=== PATIENT | female | born 1990 | race Caucasian/White ===

== ENCOUNTER 2017-07-08 10:35 | Emergency (ER) | payer BC, OTHER ==
--- NOTE | 2017-07-08 11:20 | ER Document Report ---
ED Medical Screen (RME) - General Chief Complaint: Asthma Exacerbation Stated Complaint: DIFFICULTY BREATHING Time Seen by Provider: 07/08/17 11:06 Notes: This 27-year-old female patient comes emergency room complaining of asthma exacerbation. She is . She did start Singulair this morning. She states albuterol does not really seem to help. She complains of trouble with deep breathing. She is quite anxious and unable to keep her legs still. She is complaining of tingling to her fingers. She does seem to be hyperventilating. An ABG will be done to sort out if this is all anxiety hyperventilation or some other pathology. I have greeted and performed a rapid initial assessment of this patient. A comprehensive ED assessment and evaluation of the patient, analysis of test results and completion of the medical decision making process will be conducted by additional ED providers. TRAVEL OUTSIDE OF THE [place] IN LAST 30 DAYS: No - Related Data Allergies/Adverse Reactions: No Known Allergies Allergy (Verified 02/16/16 19:06) Past Medical History - Social History Chew tobacco use (# tins/day): No Frequency of alcohol use: None Drug Abuse: None Renal/ Medical History: Denies: Hx Peritoneal Dialysis - Immunizations Hx Diphtheria, Pertussis, Tetanus Vaccination: Yes Physical Exam - Vital signs Vitals: Temp Pulse Resp BP Pulse Ox 97.6 F 91 20 132/68 H 100 07/08/17 10:40 07/08/17 10:40 07/08/17 10:40 07/08/17 10:40 07/08/17 10:40 Course - Vital Signs Vital signs: Temp Pulse Resp BP Pulse Ox 97.6 F 91 20 132/68 H 100 07/08/17 10:40 07/08/17 10:40 07/08/17 10:40 07/08/17 10:40 07/08/17 10:40 Doctor's Discharge - Discharge Referrals: KAREN DUMONT MD [Primary Care Provider] - Follow up as needed
[2017-07-08 11:59] LABS: ARTERIAL BLOOD BASE EXCESS -1.9 mmol/L; ARTERIAL BLOOD FIO2 21%; ARTERIAL BLOOD H2CO3 0.49 mmol/L (1.05-1.35); ARTERIAL BLOOD HCO3 16.2 mmol/L (20-26); ARTERIAL BLOOD PO2 118.5 mmHg (80-100); ARTERIAL BLOOD TOTAL CO2 16.7 mmol/L (21-25)
[2017-07-08 12:01] LABS: ARTERIAL BLOOD PCO2 16.2 mmHg (35-45); ARTERIAL BLOOD PH 7.62 (7.35-7.45)
[2017-07-08 13:23] LABS: ABSOLUTE LYMPHOCYTES (AUTO) 1.5 10^3/uL (0.5-4.7); ABSOLUTE MONOCYTES (AUTO) 0.6 10^3/uL (0.1-1.4); ABSOLUTE NEUT (AUTO) 8.4 10^3/uL (1.7-8.2); BASOPHILS % (AUTO) 0.3 % (0-2); EOSINOPHILS % (AUTO) 0.4 % (0-6); HEMATOCRIT 41.5 % (36.0-47.0); HEMOGLOBIN 14.5 g/dL (12.0-15.5); LYMPHOCYTES % (AUTO) 14.1 % (13-45); MEAN CORPUSCULAR HEMOGLOBIN 32.6 pg (27.0-33.4); MEAN CORPUSCULAR HGB CONC 35.1 g/dL (32.0-36.0); MEAN CORPUSCULAR VOLUME 93 fl (80-97); MONOCYTES % (AUTO) 5.9 % (3-13); PLATELET COUNT 290 10^3/uL (150-450); RED BLOOD COUNT 4.46 10^6/uL (3.72-5.28); RED CELL DISTRIBUTION WIDTH 13.2 % (11.5-14.0); SEGMENTED NEUTROPHILS % (AUTO) 79.3 % (42-78); TOTAL CELLS COUNTED % (AUTO) 100 %; WHITE BLOOD COUNT 10.5 10^3/uL (4.0-10.5)
[2017-07-08 13:42] LABS: APPEARANCE,URINE CLEAR; BILIRUBIN,URINE NEGATIVE (NEGATIVE); COLOR,URINE STRAW; GLUCOSE, URINE NEGATIVE (NEGATIVE); KETONES,URINE NEGATIVE (NEGATIVE); LEUKOCYTE ESTERASE,URINE NEGATIVE (NEGATIVE); NITRITE,URINE NEGATIVE (NEGATIVE); PROTEIN,URINE NEGATIVE (NEGATIVE); URINE SPECIFIC GRAVITY 1.003; UROBILINOGEN,URINE NEGATIVE mg/dL (<2.0)
[2017-07-08 13:46] LABS: ALANINE AMINOTRANSFERASE 22 U/L (9-52); ALBUMIN 4.2 g/dL (3.5-5.0); ALKALINE PHOSPHATASE 37 U/L (38-126); ANION GAP 11 (5-19); ASPARTATE AMINO TRANSFERASE 21 U/L (14-36); BILIRUBIN,DIRECT 0.4 mg/dL (0.0-0.4); BILIRUBIN,TOTAL 0.7 mg/dL (0.2-1.3); BLOOD UREA NITROGEN 11 mg/dL (7-20); CALCIUM 9.5 mg/dL (8.4-10.2); CARBON DIOXIDE 21 mmol/L (22-30); CHLORIDE 107 mmol/L (98-107); GLUCOSE 81 mg/dL (75-110); POTASSIUM 3.9 mmol/L (3.6-5.0); SODIUM 139.1 mmol/L (137-145); TOTAL PROTEIN 6.8 g/dL (6.3-8.2)
--- NOTE | 2017-07-08 15:10 | ER Document Report ---
ED General - General Chief Complaint: Asthma Exacerbation Stated Complaint: DIFFICULTY BREATHING Time Seen by Provider: 07/08/17 11:06 Mode of Arrival: Ambulatory Information source: Patient Notes: 27 yr old female presents with complaints of anxiety panic attack and hyperventilating. pt notes she is under alot of stress, has signicfcant family hx of anxiety. pt was seen by her obgyn, they believes she had asthma started on spiriva, but that she has not had any wheezing. pt denies any calf pain, dvt or pe risk factors. TRAVEL OUTSIDE OF THE [place] IN LAST 30 DAYS: No - HPI Onset: Just prior to arrival Onset/Duration: Sudden Quality of pain: No pain Severity: Mild Pain Level: Denies Associated symptoms: Nausea, Shortness of breath Exacerbated by: Other - stress Relieved by: Denies Similar symptoms previously: Yes Recently seen / treated by doctor: Yes - Related Data Allergies/Adverse Reactions: No Known Allergies Allergy (Verified 02/16/16 19:06) Past Medical History - Social History Smoking Status: Never Smoker Cigarette use (# per day): No Chew tobacco use (# tins/day): No Smoking Education Provided: No Frequency of alcohol use: None Drug Abuse: None Family History: Reviewed & Not Pertinent Patient has suicidal ideation: No Patient has homicidal ideation: No Renal/ Medical History: Denies: Hx Peritoneal Dialysis - Immunizations Hx Diphtheria, Pertussis, Tetanus Vaccination: Yes Review of Systems - Review of Systems Notes: REVIEW OF SYSTEMS: CONSTITUTIONAL : Denies fever, chills, or sweats. Denies recent illness. EENT: Denies eye, ear, throat, or mouth pain or symptoms. Denies nasal or sinus congestion or discharge. Denies throat, tongue, or mouth swelling or difficulty swallowing. CARDIOVASCULAR: Denies chest pain. Denies palpitations or racing or irregular heart beat. Denies ankle edema. RESPIRATORY: admits to sob GASTROINTESTINAL: admits to nausea GENITOURINARY: Denies difficulty urinating, painful urination, burning, frequency, blood in urine, or discharge. FEMALE GENITOURINARY: Denies vaginal bleeding, heavy or abnormal periods, irregular periods. Denies vaginal discharge or odor. MUSCULOSKELETAL: Denies back or neck pain or stiffness. Denies joint pain or swelling. SKIN: Denies rash, lesions or sores. HEMATOLOGIC : Denies easy bruising or bleeding. LYMPHATIC: Denies swollen, enlarged glands. NEUROLOGICAL: Denies confusion or altered mental status. Denies passing out or loss of consciousness. Denies dizziness or lightheadedness. Denies headache. Denies weakness or paralysis or loss of use of either side. Denies problems with gait or speech. Denies sensory loss, numbness, or tingling. Denies seizures. PSYCHIATRIC: Denies anxiety or stress. Denies depression, suicidal ideation, or homicidal ideation. ALL OTHER SYSTEMS REVIEWED AND NEGATIVE. PHYSICAL EXAMINATION: GENERAL: Well-appearing, well-nourished and in no acute distress. HEAD: Atraumatic, normocephalic. EYES: Pupils equal round and reactive to light, extraocular movements intact, conjunctiva are normal. ENT: Nares patent, oropharynx clear without exudates. Moist mucous membranes. NECK: Normal range of motion, supple without lymphadenopathy LUNGS: Breath sounds clear to auscultation bilaterally and equal. No wheezes rales or rhonchi. pt hyperventilating HEART: Regular rate and rhythm without murmurs ABDOMEN: Soft, gravid female Female : deferred Musculoskeletal: Normal range of motion, no pitting or edema. No cyanosis. NEUROLOGICAL: Cranial nerves grossly intact. Normal speech, normal gait. Normal sensory, motor exams PSYCH: Normal mood, normal affect. SKIN: Warm, Dry, normal turgor, no rashes or lesions noted. Dictation was performed using [employer] voice recognition software Physical Exam - Vital signs Vitals: Temp Pulse Resp BP Pulse Ox 97.6 F 91 20 132/68 H 100 07/08/17 10:40 07/08/17 10:40 07/08/17 10:40 07/08/17 10:40 07/08/17 10:40 Course - Re-evaluation Re-evalutation: Patient has obvious anxiety stress is hyperventilating significantly, her pH is noted to be 7.68 which would be consistent with hyperventilation, after talking to the patient commonly her hyperventilation stopped she is not tachycardic she is not hypoxic she is satting well I will watch her in the emergency department for a few hours to make sure that there is no abnormal vitals that she looks well 07/08/17 15:44 Mental health due ot does not wish to start any meds, Dr Diaz consulted requests Zoloft 50mg daily patient otherwise is well-appearing will be discharged home with extremely close follow-up 07/08/17 15:46 After performing a Medical Screening Examination, I estimate there is LOW risk for RUPTURED ESOPHAGUS, PNEUMOTHORAX, PULMONARY EMBOLISM, ACUTE CORONARY SYNDROME, OR THORACIC AORTIC DISSECTION, thus I consider the discharge disposition reasonable. I have reevaluated this patient multiple times and no significant life threatening changes are noted. The patient and I have discussed the diagnosis and risks, and we agree with discharging home with close follow-up. We also discussed returning to the Emergency Department immediately if new or worsening symptoms occur. We have discussed the symptoms which are most concerning (e.g., bloody sputum, worsening pain or shortness of breath) that necessitate immediate return. - Vital Signs Vital signs: Temp Pulse Resp BP Pulse Ox 98.7 F 89 18 129/88 H 99 07/08/17 15:32 07/08/17 15:32 07/08/17 15:32 07/08/17 15:32 07/08/17 15:32 - Laboratory Result Diagrams: 07/08/17 13:05 07/08/17 13:05 Laboratory results interpreted by me: 07/08/17 07/08/17 07/08/17 11:40 13:05 13:05 Seg Neutrophils % 79.3 H Absolute Neutrophils 8.4 H Carbonic Acid 0.49 L ABG pH 7.62 H* ABG pCO2 16.2 L* ABG pO2 118.5 H ABG HCO3 16.2 L ABG Total CO2 16.7 L ABG O2 Saturation 99.0 H Carbon Dioxide 21 L Creatinine 0.51 L Alkaline Phosphatase 37 L Discharge - Discharge Clinical Impression: Anxiety, Hyperventilating, Respiratory alkalosis Condition: Stable Disposition: HOME, SELF-CARE Instructions: Anxiety ([facility]) Referrals: KAREN DUMONT MD [Primary Care Provider] - Follow up tomorrow
[2017-07-08] MEDS ORDERED: METOCLOPRAMIDE HCL 10 MG TABLET PO ONE (15:15)
[2017-07-08 15:33] VITALS: BP 129/88
== END 2017-07-08 15:31 | disposition home or self-care (01) ==
LOC: ER 10:35
DX: O99.340 Other mental disorders complicating pregnancy, unspecified trimester (principal); F41.9 Anxiety disorder, unspecified; O99.519 Diseases of the respiratory system complicating pregnancy, unspecified trimester; R06.4 Hyperventilation; O26.899 Other specified pregnancy related conditions, unspecified trimester; E87.3 Alkalosis; R11.0 Nausea; Z81.8 Family history of other mental and behavioral disorders; Z73.3 Stress, not elsewhere classified
CPT/HCPCS: 36415; 80053; 81001; 82803; 85025; 99285

== ENCOUNTER 2017-12-21 11:30 | Emergency (ER) | payer BC ==
[2017-12-21] MEDS ORDERED: ONDANSETRON HCL INJ/PF 4 MG/2 ML SDV IV ONE (12:11)
[2017-12-21] MEDS ORDERED: NORMAL SALINE 1000 ML 1,000 ML IV ONE (12:12)
--- NOTE | 2017-12-21 12:14 | ER Document Report ---
ED Medical Screen (RME) - General Chief Complaint: Dizziness Stated Complaint: DIZZY, FATIGUE, SHORTNESS OF BREATH Time Seen by Provider: 12/21/17 12:01 Mode of Arrival: Ambulatory Information source: Patient Notes: 27-year-old female at 34 weeks and 6 days presents from her [facility]ODITY [facility]YER's office with complaint of nausea, dizziness and blurred vision. Patient reports dizziness, fatigue for 1 week. She has been evaluated by her COMMODITY BU[employer]ER today and was sent here. I have greeted and performed a rapid initial assessment of this patient. A comprehensive ED assessment and evaluation of the patient, analysis of test results and completion of medical decision making process we will be contacted by additional ED providers. PHYSICAL EXAMINATION: GENERAL: no acute distress. HEAD: Atraumatic, normocephalic. EYES: Pupils equal round extraocular movements intact, conjunctiva are normal. ENT: Nares patent NECK: Normal range of motion LUNGS: No respiratory distress Musculoskeletal: Normal range of motion NEUROLOGICAL: Normal speech, normal gait. PSYCH: Normal mood, normal affect. SKIN: Warm, Dry, normal turgor, no rashes or lesions noted. TRAVEL OUTSIDE OF THE [place] IN LAST 30 DAYS: No - HPI Onset: Last week Onset/Duration: Gradual, Persistent Quality of pain: No pain Associated Symptoms: Dizzy/lightheaded, Weakness Exacerbated by: Standing, Movement, Walking Relieved by: Remaining still Similar symptoms previously: No Recently seen / treated by doctor: Yes - Today by COMMODITY [employer]ER - Related Data Smoking: Non-smoker Frequency of alcohol use: None Drug Abuse: None Allergies/Adverse Reactions: No Known Allergies Allergy (Verified 12/21/17 11:31) Past Medical History Pulmonary Medical History: Reports: Hx Asthma Renal/ Medical History: Denies: Hx Peritoneal Dialysis - Immunizations Hx Diphtheria, Pertussis, Tetanus Vaccination: Yes Physical Exam - Vital signs Vitals: Temp Pulse Resp BP Pulse Ox 97.5 F 87 16 129/75 H 98 12/21/17 11:42 12/21/17 11:42 12/21/17 11:42 12/21/17 11:42 12/21/17 11:42 Course - Vital Signs Vital signs: Temp Pulse Resp BP Pulse Ox 97.5 F 87 16 129/75 H 98 12/21/17 11:42 12/21/17 11:42 12/21/17 11:42 12/21/17 11:42 12/21/17 11:42 Doctor's Discharge - Discharge Referrals: KAREN DUMONT MD [Primary Care Provider] - Follow up as needed
[2017-12-21 13:22] LABS: ABSOLUTE EOSINOPHILS # (AUTO) 0.1 10^3/uL (0.0-0.6); ABSOLUTE LYMPHOCYTES (AUTO) 1.8 10^3/uL (0.5-4.7); ABSOLUTE MONOCYTES (AUTO) 0.6 10^3/uL (0.1-1.4); ABSOLUTE NEUT (AUTO) 7.1 10^3/uL (1.7-8.2); BASOPHILS % (AUTO) 0.2 % (0-2); EOSINOPHILS % (AUTO) 0.6 % (0-6); HEMATOCRIT 36.6 % (36.0-47.0); HEMOGLOBIN 12.8 g/dL (12.0-15.5); LYMPHOCYTES % (AUTO) 18.5 % (13-45); MEAN CORPUSCULAR HEMOGLOBIN 31.8 pg (27.0-33.4); MEAN CORPUSCULAR HGB CONC 34.9 g/dL (32.0-36.0); MEAN CORPUSCULAR VOLUME 91 fl (80-97); PLATELET COUNT 310 10^3/uL (150-450); RED BLOOD COUNT 4.02 10^6/uL (3.72-5.28); RED CELL DISTRIBUTION WIDTH 13.2 % (11.5-14.0); SEGMENTED NEUTROPHILS % (AUTO) 74.7 % (42-78); TOTAL CELLS COUNTED % (AUTO) 100 %; WHITE BLOOD COUNT 9.6 10^3/uL (4.0-10.5)
[2017-12-21 13:33] LABS: APPEARANCE,URINE SLIGHTLY-CLOUDY; BILIRUBIN,URINE NEGATIVE (NEGATIVE); COLOR,URINE STRAW; GLUCOSE, URINE NEGATIVE (NEGATIVE); KETONES,URINE NEGATIVE (NEGATIVE); LEUKOCYTE ESTERASE,URINE NEGATIVE (NEGATIVE); NITRITE,URINE NEGATIVE (NEGATIVE); PROTEIN,URINE NEGATIVE (NEGATIVE); URINE SPECIFIC GRAVITY 1.003; UROBILINOGEN,URINE NEGATIVE mg/dL (<2.0)
[2017-12-21 13:44] LABS: ALANINE AMINOTRANSFERASE 17 U/L (9-52); ALBUMIN 3.8 g/dL (3.5-5.0); ALKALINE PHOSPHATASE 97 U/L (38-126); ANION GAP 6 (5-19); ASPARTATE AMINO TRANSFERASE 20 U/L (14-36); BILIRUBIN,DIRECT 0.4 mg/dL (0.0-0.4); BILIRUBIN,TOTAL 0.5 mg/dL (0.2-1.3); BLOOD UREA NITROGEN 5 mg/dL (7-20); CALCIUM 8.9 mg/dL (8.4-10.2); CARBON DIOXIDE 24 mmol/L (22-30); CHLORIDE 106 mmol/L (98-107); GLUCOSE 81 mg/dL (75-110); SODIUM 136.2 mmol/L (137-145); TOTAL PROTEIN 7.2 g/dL (6.3-8.2)
--- NOTE | 2017-12-21 13:58 | ER Document Report ---
ED General - General Chief Complaint: Dizziness Stated Complaint: DIZZY, FATIGUE, SHORTNESS OF BREATH Time Seen by Provider: 12/21/17 12:01 Mode of Arrival: Ambulatory Notes: Patient is a 27-year-old female , that is 35 weeks gravid that presents to the emergency department for chief complaint of fatigue. Patient states that over the last week she has been feeling lightheaded, and having nausea without vomiting and fatigue. She also noticed that she was having more contractions, but not less than 5 minutes in between. She did have 3 an hour earlier today. This is her second , that has gone without complication, she has been doing well, she did have an ultrasound yesterday, that was normal. She denies having any headaches, chest pain, shortness of breath, difficulty breathing, abdominal pain, dysuria or hematuria. Past Medical History: Denies chronic medical conditions Past Surgical History: Denies surgical history Social History: Denies tobacco, alcohol or drug use Family History: Reviewed and noncontributory for presenting illness Allergies: Reviewed, see documented allergy list. REVIEW OF SYSTEMS: Unless otherwise stated in this report the patient's positive and negative responses for review of systems for constitutional, eyes, ENT, cardiovascular, respiratory, gastrointestinal, neurological, genitourinary, musculoskeletal, and integumentary systems and related systems to the presenting problem are either as stated in the HPI or were not pertinent or were negative for the symptoms and/or complaints related to the presenting medical problem. PHYSICAL EXAMINATION: Vital signs reviewed, nursing noted reviewed. GENERAL: Well-appearing, well-nourished and in no acute distress. HEAD: Atraumatic, normocephalic. EYES: Eyes appear normal, extraocular movements intact, sclera anicteric, conjunctiva are normal. ENT: nares patent, oropharynx clear without exudates. Moist mucous membranes. NECK: Normal range of motion, supple without lymphadenopathy LUNGS: Breath sounds clear to auscultation bilaterally and equal. No wheezes rales or rhonchi. HEART: Regular rate and rhythm without murmurs ABDOMEN: Soft, gravid, nontender, normoactive bowel sounds. No rebound, guarding, or rigidity. No masses appreciated. EXTREMITIES: Nontender, good range of motion, no pitting or edema. NEUROLOGICAL: No focal neurological deficits. Moves all extremities spontaneously Motor and sensory grossly intact on exam. PSYCH: Normal mood, normal affect. SKIN: Warm, Dry, normal turgor, no rashes or lesions noted on exposed skin TRAVEL OUTSIDE OF THE [place] IN LAST 30 DAYS: No - Related Data Allergies/Adverse Reactions: No Known Allergies Allergy (Verified 12/21/17 11:31) Past Medical History - General Information source: Patient - Social History Smoking Status: Never Smoker Frequency of alcohol use: None Drug Abuse: None Family History: Reviewed & Not Pertinent Patient has suicidal ideation: No Patient has homicidal ideation: No Pulmonary Medical History: Reports: Hx Asthma Renal/ Medical History: Denies: Hx Peritoneal Dialysis - Immunizations Hx Diphtheria, Pertussis, Tetanus Vaccination: Yes Physical Exam - Vital signs Vitals: Temp Pulse Resp BP Pulse Ox 97.5 F 87 16 129/75 H 98 12/21/17 11:42 12/21/17 11:42 12/21/17 11:42 12/21/17 11:42 12/21/17 11:42 Course - Re-evaluation Re-evalutation: Patient seen and examined vital signs reviewed. Laboratory data and imaging were ordered as appropriate for the patient's presenting symptoms and complaint, with consideration of any critical or life threatening conditions that may be associated with their obtained history and exam as noted above. Patient was treated with Zofran and IV fluids ordered by triage provider heart tones 144 Results were reviewed when available and demonstrated trace bacteria in the urine, will treat as the patient is , with Keflex for 5 days, while the patient follow-up with CR[employer]FERENCE [employer]ERK, blood work was unremarkable except for very mild hyponatremia, patient was given IV fluids and was feeling better The patient was re-evaluated and was improved Evaluation was most consistent with possible mild dehydration possible UTI and , will treat with Keflex for 5 days. Results were discussed with the patient at this point, after careful consideration I feel that that patient can be discharged from the emergency department, the patient was educated treatments and reasons to return to the emergency department based on their presumed diagnosis as noted above, they were advised to followup with a primary care physician in 2-3 days. Patient was agreeable to plan of care. *Note is created using voice recognition software and may contain spelling, syntax or grammatical errors. Laboratory 12/21/17 12/21/17 12/21/17 12:45 12:45 12:45 WBC 9.6 RBC 4.02 Hgb 12.8 Hct 36.6 MCV 91 MCH 31.8 MCHC 34.9 RDW 13.2 Plt Count 310 Seg Neutrophils % 74.7 Lymphocytes % 18.5 Monocytes % 6.0 Eosinophils % 0.6 Basophils % 0.2 Absolute Neutrophils 7.1 Absolute Lymphocytes 1.8 Absolute Monocytes 0.6 Absolute Eosinophils 0.1 Absolute Basophils 0.0 Sodium 136.2 L Potassium 4.0 Chloride 106 Carbon Dioxide 24 Anion Gap 6 BUN 5 L Creatinine 0.50 L Est GFR ( Amer) > 60 Est GFR (Non-Af Amer) > 60 Glucose 81 Calcium 8.9 Total Bilirubin 0.5 Direct Bilirubin 0.4 Neonat Total Bilirubin Not Reportable Neonat Direct Bilirubin Not Reportable Neonat Indirect Bili Not Reportable AST 20 ALT 17 Alkaline Phosphatase 97 Total Protein 7.2 Albumin 3.8 Urine Color STRAW Urine Appearance SLIGHTLY-CLOUDY Urine pH 7.0 Ur Specific [place] 1.003 Urine Protein NEGATIVE Urine Glucose (UA) NEGATIVE Urine Ketones NEGATIVE Urine Blood NEGATIVE Urine Nitrite NEGATIVE Urine Bilirubin NEGATIVE Urine Urobilinogen NEGATIVE Ur Leukocyte Esterase NEGATIVE Urine WBC (Auto) 1 Urine Bacteria (Auto) TRACE Squamous Epi Cells Auto 4 Urine Mucus (Auto) RARE Urine Ascorbic Acid NEGATIVE - Vital Signs Vital signs: Temp Pulse Resp BP Pulse Ox 97.5 F 87 16 129/75 H 98 12/21/17 11:42 12/21/17 11:42 12/21/17 11:42 12/21/17 11:42 12/21/17 11:42 - Laboratory Result Diagrams: 12/21/17 12:45 12/21/17 12:45 Laboratory results interpreted by me: 12/21/17 12:45 Sodium 136.2 L BUN 5 L Creatinine 0.50 L - EKG Interpretation by Me Additional EKG results interpreted by me: EKG demonstrates normal sinus rhythm with a ventricular rate of 97 bpm, normal axis, normal intervals, no evidence of acute ischemia on this EKG. Discharge - Discharge Clinical Impression: Fatigue Qualifiers: Fatigue type: unspecified Qualified Code(s): R53.83 - Other fatigue UTI (urinary tract infection) Qualifiers: Urinary tract infection type: site unspecified Hematuria presence: without hematuria Qualified Code(s): N39.0 - Urinary tract infection, site not specified Condition: Stable Disposition: HOME, SELF-CARE Instructions: Urinary Tract Infection ([facility]) Additional Instructions: Please return to the emergency department if you have any worsening, or concern of your symptoms. Please return to the emergency department if you develop chest pain, difficulty breathing, severe abdominal pain, or ongoing vomiting. Please follow-up with your primary care physician in 2-3 days and any other recommended physicians. If prescribed, take all medications as directed. If you have any questions or concerns do not hesitate to return the emergency department for evaluation. Prescriptions: Cephalexin Monohydrate [Keflex 500 mg Capsule] 500 mg PO BID 5 Days #10 capsule Referrals: KAREN DUMONT MD [Primary Care Provider] - Follow up in 3-[address] [facility] [Provider Group] - Follow up in 3-5 days
[2017-12-21 14:40] VITALS: BP 120/48
--- NOTE | 2017-12-21 19:35 | EKG REPORT ---
SEVERITY:- NORMAL ECG - SINUS RHYTHM : Confirmed by: Isabela Power MD 21-Dec-2017 19:34:29
== END 2017-12-21 14:41 | disposition home or self-care (01) ==
LOC: ER 11:30
DX: O23.43 Unspecified infection of urinary tract in pregnancy, third trimester (principal); R53.83 Other fatigue; R42 Dizziness and giddiness; R06.02 Shortness of breath; Z3A.35 35 weeks gestation of pregnancy
CPT/HCPCS: 93005; 99284; 96361; 96374; 36415; 85025; 80053; 81001; 93010; J2405

== ENCOUNTER 2018-01-17 19:38 | Outpatient (CLI) | payer BC ==
[2018-01-17 20:05] LABS: APPEARANCE,URINE CLEAR; BILIRUBIN,URINE NEGATIVE (NEGATIVE); COLOR,URINE COLORLESS; GLUCOSE, URINE NEGATIVE (NEGATIVE); KETONES,URINE NEGATIVE (NEGATIVE); LEUKOCYTE ESTERASE,URINE NEGATIVE (NEGATIVE); NITRITE,URINE NEGATIVE (NEGATIVE); PROTEIN,URINE NEGATIVE (NEGATIVE); URINE SPECIFIC GRAVITY 1.002; UROBILINOGEN,URINE NEGATIVE mg/dL (<2.0)
[2018-01-17 20:35] LABS: URINE AMPHETAMINES SCREEN NEGATIVE; URINE BARBITURATES SCREEN NEGATIVE; URINE BENZODIAZEPINES SCREEN NEGATIVE; URINE COCAINE SCREEN NEGATIVE; URINE MARIJUANA (THC) SCREEN NEGATIVE; URINE METHADONE SCREEN NEGATIVE; URINE PHENCYCLIDINE SCREEN NEGATIVE
--- NOTE | 2018-01-17 22:12 | Non Stress Test Report ---
Non Stress Test Datetime Report Generated by CPN: 01/17/2018 22:12 DEMOGRAPHIC EGA NST: 38.5 INDICATION Indication for Study: Ordered by Provider MONITORING Monitor Explained: Monitor Explained; Test Explained; Patient Verbalized Understanding Time on Monitor: 01/17/2018 19:54 Time off Monitor: 01/17/2018 20:33 NST Duration: 39 NST INTERVENTIONS NST Interventions: PO Hydration; Reposition Patient Physician Notified NST: Dr. Joe BABY A: [id number] BABY A Movement : Present Contraction Frequency : 1.5-7 FHR Baseline : 130 Accelerations : 15X15 Decelerations : None Variability : Moderate 6-25bpm NST Review: Meets Criteria for Reactive NST NST Review and Verified By : Selina MEEKT Results: Reactive NST REPORT Report Trigger: Send Report
== END 2018-01-17 22:10 | disposition home or self-care (01) ==
LOC: LC 19:38
PROVIDERS: ATTEND Obstetrics & Gynecology
PROC: 4A1HXCZ Monitoring of Products of Conception, Cardiac Rate, External Approach (ICD-10-PCS; principal; 2018-01-17)
DX: O47.1 False labor at or after 37 completed weeks of gestation (principal); Z3A.38 38 weeks gestation of pregnancy
CPT/HCPCS: 59025; 80307; 81005

== ENCOUNTER 2018-01-18 07:52 | Outpatient (CLI) | payer BC ==
[2018-01-18 08:52] LABS: APPEARANCE,URINE CLEAR; BILIRUBIN,URINE NEGATIVE (NEGATIVE); COLOR,URINE STRAW; GLUCOSE, URINE NEGATIVE (NEGATIVE); KETONES,URINE NEGATIVE (NEGATIVE); LEUKOCYTE ESTERASE,URINE NEGATIVE (NEGATIVE); NITRITE,URINE NEGATIVE (NEGATIVE); PROTEIN,URINE NEGATIVE (NEGATIVE); URINE SPECIFIC GRAVITY 1.003; UROBILINOGEN,URINE NEGATIVE mg/dL (<2.0)
[2018-01-18 09:07] LABS: URINE AMPHETAMINES SCREEN NEGATIVE; URINE BARBITURATES SCREEN NEGATIVE; URINE BENZODIAZEPINES SCREEN NEGATIVE; URINE COCAINE SCREEN NEGATIVE; URINE MARIJUANA (THC) SCREEN NEGATIVE; URINE METHADONE SCREEN NEGATIVE; URINE PHENCYCLIDINE SCREEN NEGATIVE
--- NOTE | 2018-01-18 10:20 | Non Stress Test Report ---
Non Stress Test Datetime Report Generated by CPN: 01/18/2018 10:19 DEMOGRAPHIC EGA NST: 38.6 INDICATION Indication for Study: Other Indication for Study (NST) Other: LABOR CHECK VITAL SIGNS Temperature - NST: 97.8 Pulse - NST: 105 RESP - NST: 18 NBPSYS NST: 117 NBPDIA NST: 70 MONITORING Monitor Explained: Monitor Explained; Test Explained; Patient Verbalized Understanding Time on Monitor: 01/18/2018 09:30 Time off Monitor: 01/18/2018 10:00 NST Duration: 30 NST INTERVENTIONS NST Interventions: PO Hydration; Reposition Patient Physician Notified NST: K SCHMIDT CNM BABY A: [id number] BABY A Movement : Present Contraction Frequency : 5-6 FHR Baseline : 140 Accelerations : 15X15 Decelerations : None Variability : Moderate 6-25bpm NST Review: Meets Criteria for Reactive NST NST Review and Verified By : Rachel Mitchell C NST Results: Reactive NST REPORT Report Trigger: Send Report
== END 2018-01-18 10:15 | disposition home or self-care (01) ==
LOC: LC 07:52
PROVIDERS: ATTEND Student in an Organized Health Care Education/Training Program
PROC: 4A1HXCZ Monitoring of Products of Conception, Cardiac Rate, External Approach (ICD-10-PCS; principal; 2018-01-18)
DX: O47.1 False labor at or after 37 completed weeks of gestation (principal); Z3A.38 38 weeks gestation of pregnancy
CPT/HCPCS: 59025; 80307; 81005

== ENCOUNTER 2018-01-23 08:49 | Inpatient (IN) | payer BC ==
[2018-01-23 09:27] LABS: APPEARANCE,URINE CLOUDY; BILIRUBIN,URINE NEGATIVE (NEGATIVE); COLOR,URINE YELLOW; GLUCOSE, URINE NEGATIVE (NEGATIVE); KETONES,URINE NEGATIVE (NEGATIVE); LEUKOCYTE ESTERASE,URINE MODERATE (NEGATIVE); NITRITE,URINE NEGATIVE (NEGATIVE); PROTEIN,URINE NEGATIVE (NEGATIVE); URINE SPECIFIC GRAVITY 1.009; UROBILINOGEN,URINE NEGATIVE mg/dL (<2.0)
[2018-01-23 09:44] LABS: URINE AMPHETAMINES SCREEN NEGATIVE; URINE BARBITURATES SCREEN NEGATIVE; URINE BENZODIAZEPINES SCREEN NEGATIVE; URINE COCAINE SCREEN NEGATIVE; URINE MARIJUANA (THC) SCREEN NEGATIVE; URINE METHADONE SCREEN NEGATIVE; URINE PHENCYCLIDINE SCREEN NEGATIVE
[2018-01-23] MEDS ORDERED: OXYTOCIN 10 UNIT/ML VIAL ONE (10:21)
[2018-01-23] MEDS ORDERED: MISOPROSTOL 0.2 MG TABLET ONE (10:21)
[2018-01-23] MEDS ORDERED: OXYTOCIN/NORMAL SALINE 0 UNIT/0 ML RTUINJ ONE (10:21)
[2018-01-23] MEDS ORDERED: LIDOCAINE 1% INJ-PF (10 MG/ML) 30 ML SDV ONE (10:21)
[2018-01-23] MEDS ORDERED: PENICILLIN G-K 5 MILLION UNIT VIAL ONE ×4 (10:22→18:58)
[2018-01-23] MEDS ORDERED: PENICILLIN G POTASSIUM 5,000,000 UNIT in DEXTROSE 5%-WATER 100 ML IV ONE (10:50)
[2018-01-23] MEDS: RINGERS SOLUTION,LACTATED 1,000 ML IV PRN ×2 (10:54→17:42)
--- NOTE | 2018-01-23 11:41 | Admission Physical ---
Datetime Report Generated by CPN: 01/23/2018 11:41 CURRENT ADMISSION Chief Complaint: Uterine Contractions Admit Impression : Term, Intrauterine Admit Impression- Other: advanced dilation, GBS+ Admit Plan: Admit to Unit; Initiate Labor Protocol ALLERGIES Medication Allergies: No Medication Allergies: No Known Allergies (12/21/2017) Latex: No Latex Allergies Food Allergies: N/A Environmental Allergies: N/A OBSTETRICAL HISTORY EDC: 01/26/2018 00:00 : 2 Para: 1 Gestational Diabetes: No Rh Sensitization: No Incompetent Cervix: No MEENU: No Infertility: No ART Treatment: No Uterine Anomaly: No IUGR: No Hx Previous C/S: No Macrosomia: No Hx Loss/Stillborn: No PIH: No Hx : No Placenta Previa/Abruption: No Depression/PP Depression: Yes PTL/PROM: No Post Hemorrhage: Yes Current Procedures: Ultrasound; NST Obstetrical History Comments: G1 - 2015, , 41 weeks, boy G2 - Current SEE RECORDS Alcohol: No Marijuana : No Cocaine: No Other Illicit Drugs: No Cigarettes: Never Smoker. [id number] MEDICAL HISTORY Diabetes: No Blood Transfusion: Yes Pulmonary Disease (Asthma, TB): Yes Breast Disease: No Hypertension: No Media Senior Recruiter Surgery: No Heart Disease: No Hosp/Surgery: No Autoimmune Disorder: No Anesthetic Complications: No Kidney Disease: No Abnormal Pap Smear: No Neuro/Epilepsy: No Psychiatric Disorders: No Other Medical Diseases: No Hepatitis/Liver Disease: No Significant Family History: No Varicosities/Phlebitis: No Trauma/Violence : No Thyroid Dysfunction: No Medical History Comments: PP Hemorrhage and Depression with first baby; Asthma INFECTIOUS HISTORY Gonorrhea: No Genital Herpes: No Chlamydia: No Tuberculosis: No Syphilis: No Hepatitis: No HIV/AIDS Exposure: No Rash or Viral Illness: No HPV: No PHYSICAL EXAM General: Normal HEENT: Normal Neurologic: Normal Thyroid: Normal Heart: Normal Lungs: Normal Breast: Normal Back: Normal Abdomen: Normal Genitourinary Exam: Normal Extremities: Normal DTRs: Normal Pelvic Type: Adequate Vital Signs: Reviewed; Within Normal Limits VAGINAL EXAM Dilatation: 4 Contraction Comments: occassional MEMBRANES Membranes: Intact FETUS A EGA: 39.4 Monitoring: External US Decelerations: None FHR Category: Category I Admit Comment: Pt seen at [facility] this morning and noted to be dialated. Pt to be admitted per Dr Diaz for delivery. Will treat for GBS+ status and augment labor. Pt with hx of 10 pound baby and PPH last . EFW per deidra's today is 9 pounds. Pt states she feels like this baby is smaller. Plans an epidural. PLANS FOR LABOR AND DELIVERY Labor and Delivery: None Pain Management: Natural; Epidural Feeding Preference: Formula Benefit of Breast Feed Discussed: Yes Circumcision: Yes INFORMED CONSENT Assignment: Wanda Diaz MD Signature: with User ID: [email or web address] : with User ID: [email or web address]
[2018-01-23] MEDS ORDERED: NORMAL SALINE 250 ML IV PRN (11:47)
[2018-01-23] MEDS ORDERED: OXYTOCIN/NORMAL SALINE 20 UNIT/1,000 ML RTUINJ IV PRN ×2 (11:53→21:08)
[2018-01-23 11:55] LABS: ABSOLUTE LYMPHOCYTES (AUTO) 1.5 10^3/uL (0.5-4.7); ABSOLUTE MONOCYTES (AUTO) 0.5 10^3/uL (0.1-1.4); BASOPHILS % (AUTO) 0.2 % (0-2); EOSINOPHILS % (AUTO) 0.6 % (0-6); HEMATOCRIT 32.9 % (36.0-47.0); HEMOGLOBIN 11.5 g/dL (12.0-15.5); LYMPHOCYTES % (AUTO) 18.7 % (13-45); MEAN CORPUSCULAR VOLUME 89 fl (80-97); MONOCYTES % (AUTO) 6.1 % (3-13); PLATELET COUNT 269 10^3/uL (150-450); RED BLOOD COUNT 3.71 10^6/uL (3.72-5.28); RED CELL DISTRIBUTION WIDTH 13.8 % (11.5-14.0); SEGMENTED NEUTROPHILS % (AUTO) 74.4 % (42-78); TOTAL CELLS COUNTED % (AUTO) 100 %; WHITE BLOOD COUNT 8.1 10^3/uL (4.0-10.5)
--- NOTE | 2018-01-23 13:36 | L&D Progress Notes ---
PROGRESS NOTES Datetime Report Generated by CPN: 01/23/2018 13:36 PROGRESS NOTE Impression: Reassuring Heart Rate Procedures: Sterile Vag Exam Plan: Continue Present Management; Augmentation; Anticipate Vaginal Delivery Plan Other: PCN q 4 hours for GBS+ Informed Consent Obtained: Vaginal Delivery Vital Signs : Reviewed; Within Normal Limits Comment: Pitocin infusing, pt states contractions are becoming stronger, doing well, breathing thru them. Position changes encouraged. VAGINAL EXAM Dilatation: 5-6 Dilatation: 4 Effacement: 90 Station: -1 Contractions: q2-3 Contractions: occassional MEMBRANES Membranes: Intact Membranes: Intact FETUS A FHR - Baseline: 135 Monitoring: External US Variability: Moderate 6-25bpm Accelerations: 15X15 Decelerations: None FHR Category: Category I SIGNATURE SIGNATURE: [id number];[id number];[id number] SIGNATURE: [id number];[id number] SIGNATURE: [id number] SIGNATURE: [id number] Assignment: Wanda Diaz MD Signature: with User ID: [email or web address] : with User ID: [email or web address]
[2018-01-23] MEDS: PENICILLIN G POTASSIUM 2,500,000 UNIT in DEXTROSE 5%-WATER 50 ML IV SCH ×2 (14:46→19:03)
--- NOTE | 2018-01-23 16:17 | L&D Progress Notes ---
PROGRESS NOTES Datetime Report Generated by CPN: 01/23/2018 16:17 PROGRESS NOTE Impression: Reassuring Heart Rate Procedures: Artificial ROM; Sterile Vag Exam Procedures- Other: AROM w/ clear fluid present Plan: Augmentation; Antibiotic Therapy; Anticipate Vaginal Delivery Vital Signs : Reviewed; Within Normal Limits Comment: Pitocin augmentation, pt remains comfortable. PCN x 2 doses infused. AROM. Pt may have either IV pain medication or an epidual if desires. Position changes encouraged. VAGINAL EXAM Dilatation: 6 Effacement: 90 Station: -1 Contractions: q1-2 MEMBRANES Membranes: Ruptured Amniotic Fluid Color: Clear FETUS A FHR - Baseline: 130 Monitoring: External US Variability: Moderate 6-25bpm Accelerations: 15X15 Decelerations: None FHR Category: Category I FETUS C SIGNATURE: [id number];[id number] Assignment: Wanda Diaz MD Signature: with User ID: [email or web address] : with User ID: [email or web address]
[2018-01-23] MEDS ORDERED: BUPIVACAINE HCL 0.5 % INJ/PF 30 ML SDV ONE (17:13)
[2018-01-23] MEDS ORDERED: FENTANYL/BUPIVACAINE/NS/PF 300 MCG/150 ML RTUINJ EPI ONE (17:13)
[2018-01-23] MEDS ORDERED: EPHEDRINE SULFATE INJ 50 MG/1 ML AMPULE ONE (17:13)
[2018-01-23] MEDS ORDERED: PROMETHAZINE HCL 25 MG TABLET PO PRN (21:08)
[2018-01-23] MEDS ORDERED: DIPH/PERTUSS(ACELL)/TETANUS VAC/PF 0.5 ML SYR (>=10YO) IM PRN (21:08)
[2018-01-23] MEDS ORDERED: PROMETHAZINE HCL 25 MG SUPP.RECT PR PRN (21:08)
[2018-01-23] MEDS ORDERED: PROMETHAZINE HCL INJ 25 MG/1 ML VIAL IV PRN (21:08)
[2018-01-23] MEDS ORDERED: MAGNESIUM HYDROXIDE SUSP 30 ML UDCUP PO PRN (21:08)
[2018-01-23] MEDS ORDERED: NA PHOS,M-B/NA PHOS,DI-BA (ADULT) 133 ML ENEMA PR PRN (21:08)
[2018-01-23] MEDS ORDERED: PSEUDOEPHEDRINE HCL 30 MG TABLET PO PRN (21:08)
[2018-01-23] MEDS ORDERED: DIBUCAINE 1% OINTMENT 28 GM TP PRN (21:08)
[2018-01-23] MEDS ORDERED: MEASLES,MUMPS&RUBELLA VACC/PF 0.5 ML VIAL SUBCUT PRN (21:08)
[2018-01-23] MEDS ORDERED: ZOLPIDEM TARTRATE 5 MG TABLET PO PRN (21:08)
[2018-01-23] MEDS ORDERED: DIPHENHYDRAMINE HCL 25 MG CAPSULE PO PRN (21:08)
[2018-01-23] MEDS ORDERED: BENZOCAINE/MENTHOL AEROSOL SPRAY 56 ML TOP PRN (21:08)
[2018-01-23] MEDS ORDERED: ACETAMINOPHEN 650 MG SUPP.RECT PR PRN (21:08)
[2018-01-23] MEDS ORDERED: ACETAMINOPHEN WITH CODEINE #3 TABLET PO PRN ×2 (21:08)
[2018-01-23] MEDS ORDERED: GLYCERIN/WITCH HAZEL LEAF 1 EACH MED..PAD TP PRN (21:08)
[2018-01-23] MEDS ORDERED: METHYLERGONOVINE MALEATE INJ/PF 0.2 MG/1 ML AMPULE ONE (22:26)
--- NOTE | 2018-01-23 22:47 | Delivery Summary ---
Del Sum A-C Datetime Report Generated by CPN: 01/23/2018 22:46 DELIVERY PERSONNEL DELIVERY PERSONNEL: [id number] Delivery Doctor:: Wanda Diaz MD Labor and Delivery Nurse:: Renetta Marshall RNplastics seasoner operator Nurse:: Rita Schmitt RN Centrifugal Casting Machine Tender/CUSTOMER ACCOUNT REPRESENTATIVE: Yoni Ertel, CUSTOMER ACCOUNT REPRESENTATIVE MATERNAL INFORMATION Delivery Anesthesia: Local; Epidural Medications After Delivery: Pitocin Drip 20 Units/1000ml NSS; Methergine 0.2mg IM; Cytotec 1000mcg Per Rectum/Vagina Maternal Complications: None LABOR SUMMARY EDC: 01/26/2018 00:00 No. Babies in Womb: 1 Attempted: No Labor Anesthesia: Epidural LABOR INFORMATION Reason for Induction: Not Applicable Onset of Labor: 01/23/2018 16:09 Complete Dilatation: 01/23/2018 19:47 Oxytocin: Augmentation Group B Beta Strep: Positive Antibiotics # of Doses: 3 Antibiotics Time of Last Dose: 1903 Name of Antibiotic Given: PCN Steroids Given: None Reason Steroids Not Administered: Not Applicable MEMBRANES Membranes Rupture Method: Artificial Rupture of Membranes: 01/23/2018 16:09 Length of Rupture (hr): 4.70 Amniotic Fluid Color: Clear Amniotic Fluid Amount: Small Amniotic Fluid Odor: Normal STAGES OF LABOR Stage 1 hr: 3 Stage 1 min: 38 Stage 2 hr: 1 Stage 2 min: 4 Stage 3 hr: 0 Stage 3 min: 10 Total Time in Labor hr: 4 Total Time in Labor min: 52 VAGINAL DELIVERY Episiotomy: None Laceration #1: Perineal Laceration Extension #1: First Degree Laceration #2: None Laceration Extension #2: N/A Laceration #3: None Laceration Extension #3: N/A Laceration Repair: Yes Laceration Repair Note: Repaired in usual fashion with 3-0 chromic suture Sponge Count Correct: N/A; Vaginal Sweep Performed Sharps Count Correct: Yes CSECTION DELIVERY Primary Indication: N/A Secondary Indication: N/A CSection Incidence: N/A Labor: N/A Elective: N/A CSection Incision: N/A BABY A INFORMATION Delivery Date/Time: 01/23/2018 20:51 Method of Delivery: Vaginal Born in Route : No : N/A Forceps: N/A Vacuum Extraction: N/A Shoulder Dystocia : No PRESENTATION/POSITION BABY A Presentation: Cephalic Cephalic Presentation: Vertex Breech Presentation: N/A PLACENTA INFORMATION BABY A Placenta Delivery Time : 01/23/2018 21:01 Placenta Method of Delivery: Spontaneous Placenta Status: Delivered SCORES BABY A Heart Rate 1 min: >100 bpm Resp Effort 1 min: Slow, Irregular Reflex Irritability 1 min: Cough or Sneeze or Pulls Away Muscle Tone 1 min: Active Motion Color 1 min: Body [place], Extremities Blue SCORE 1 MIN: 8 Heart Rate 5 min: >100 bpm Resp Effort 5 min: Good Cry Reflex Irritability 5 min: Cough or Sneeze or Pulls Away Muscle Tone 5 min: Active Motion Color 5 min: Body [place], Extremities Blue SCORE 5 MIN: 9 INFANT INFORMATION BABY A Gestational Age at Delivery: 39.4 Gestational Status: Full Term- 39- 40.6 Weeks Infant Outcome : Liveborn Infant Condition : Stable Sex: Male IDENTIFICATION BABY A Infant Verification Date/Time: 01/23/2018 21:38 ID Band Number: [id number] Mother's Name Verified: Yes Infant RN Verifying Infant: Brian RN Additional Verifying Personnel: Doug RN WEIGHT/LENGTH BABY A Birthweight (gm): 4450 Infant Weight (lb): 9 Weight (oz): 13 Length (in): 21.50 Length (cm): 54.61 CORD INFORMATION BABY A No. Cord Vessels: 3 Nuchal Cord : N/A Cord Blood Taken: Yes-For Storage (Mom's Blood type +) Suction: None ASSESSMENT BABY A Complications: None Physical Findings at Delivery: Within Normal Limits Skin to Skin: Yes Infant Care By: NDoyle RN Transferred To: Remains with Mother BABY B INFORMATION : N/A SIGNATURES Signature: Electronically signed by MD Olga GonzalezLOS [facility]) on 01/23/2018 at 21:11 with User ID: [email or web address]
[2018-01-24] MEDS: FAMOTIDINE 20 MG TABLET PO SCH ×3 (02:11→21:07)
[2018-01-24] MEDS: IBUPROFEN 800 MG TABLET PO SCH ×4 (02:11→21:06)
[2018-01-24 08:11] LABS: HEMOGLOBIN 11.7 g/dL (12.0-15.5); MEAN CORPUSCULAR HEMOGLOBIN 30.9 pg (27.0-33.4); MEAN CORPUSCULAR HGB CONC 34.4 g/dL (32.0-36.0); MEAN CORPUSCULAR VOLUME 90 fl (80-97); PLATELET COUNT 249 10^3/uL (150-450); RED BLOOD COUNT 3.79 10^6/uL (3.72-5.28); RED CELL DISTRIBUTION WIDTH 14.2 % (11.5-14.0); WHITE BLOOD COUNT 12.9 10^3/uL (4.0-10.5)
[2018-01-24] MEDS: PRENATAL VITAMIN W DHA CAPSULE PO SCH (10:12)
[2018-01-24] MEDS: DOCUSATE SODIUM 100 MG CAPSULE PO SCH ×2 (10:12→17:50)
[2018-01-24] MEDS: FERROUS SULFATE 325 MG TABLET PO SCH ×2 (10:12→17:50)
[2018-01-24] MEDS: SENNOSIDES/DOCUSATE 8.6-50 MG 1 EACH TABLET PO SCH (10:12)
--- NOTE | 2018-01-24 10:41 | PDOC PROGRESS REPORT ---
Subjective-OB Progress Note for:: 01/24/18 Subjective: reports bleeding slowing, pain controlled with current meds, denies needs. Physical Exam (OB) Vital Signs: Temp Pulse Resp BP Pulse Ox 98.2 F 76 15 118/63 97 01/24/18 08:23 01/24/18 08:23 01/24/18 08:23 01/24/18 08:23 01/24/18 08:23 Intake & Output 01/23/18 01/24/18 01/25/18 06:59 06:59 06:59 Intake Total 900 1240 Balance 900 1240 Weight 101.7 kg - Abdomen Description: Soft Hernia Present: No Fundal Description: Firm, Midline Fundal Height: u/u - u/2 - Abdominal Distension: No distension Tenderness: Nontender - Extremities Lower extremities: Leighton's sign - neg Calf: Normal, Nontender Objective-Diagnostic Laboratory: 01/24/18 07:45 01/23/18 01/23/18 01/24/18 11:30 11:30 07:45 WBC 8.1 12.9 H RBC 3.71 L 3.79 Hgb 11.5 L 11.7 L Hct 32.9 L 34.0 L MCV 89 90 MCH 31.0 30.9 MCHC 35.0 34.4 RDW 13.8 14.2 H Plt Count 269 249 Seg Neutrophils % 74.4 Lymphocytes % 18.7 Monocytes % 6.1 Eosinophils % 0.6 Basophils % 0.2 Absolute Neutrophils 6.0 Absolute Lymphocytes 1.5 Absolute Monocytes 0.5 Absolute Eosinophils 0.0 Absolute Basophils 0.0 Blood Type A POSITIVE Antibody Screen NEGATIVE Assessment and Plan(PN) - Assessment and Plan (1) Vacuum extraction, delivered, current hospitalization Is this a current diagnosis for this admission?: Yes - Time Spent with Patient Time with patient: Less than 15 minutes - Disposition Anticipated Discharge: Home Within: within 24 hours
[2018-01-25] MEDS: IBUPROFEN 800 MG TABLET PO SCH (06:40)
[2018-01-25 09:16] VITALS: BP 118/63
[2018-01-25] MEDS: DOCUSATE SODIUM 100 MG CAPSULE PO SCH (09:31)
[2018-01-25] MEDS: SENNOSIDES/DOCUSATE 8.6-50 MG 1 EACH TABLET PO SCH (09:31)
[2018-01-25] MEDS: PRENATAL VITAMIN W DHA CAPSULE PO SCH (09:31)
[2018-01-25] MEDS: FERROUS SULFATE 325 MG TABLET PO SCH (09:31)
[2018-01-25] MEDS: FAMOTIDINE 20 MG TABLET PO SCH (09:31)
--- NOTE | 2018-01-25 09:53 | PDOC DISCHARGE SUMMARY ---
Final Diagnosis Discharge Date: 01/25/18 - Final Diagnosis (1) Delivery normal Is this a current diagnosis for this admission?: Yes (2) GBS (group B Streptococcus carrier), +RV culture, currently Is this a current diagnosis for this admission?: Yes (3) Perineal laceration during delivery Is this a current diagnosis for this admission?: Yes (4) Is this a current diagnosis for this admission?: Yes Discharge Data - Discharge Medication Prescriptions: Ibuprofen [Motrin 800 mg Tablet] 800 mg PO Q8HP PRN #60 tablet PRN Reason: Dibucaine 1% Ointment [Nupercainal 1% Oint 28 gm] 1 applic TP PRN PRN #1 tube PRN Reason: For Pain Vit/Dha [ Multi + Dha Capsule] 1 cap PO DAILY #90 capsule Home Medications: Dibucaine 1% Ointment [Nupercainal 1% Oint 28 gm] 1 applic TP PRN PRN #1 tube Ibuprofen [Motrin 800 mg Tablet] 800 mg PO Q8HP PRN #60 tablet 01/25/18 Vit/Dha [ Multi + Dha Capsule] 1 cap PO DAILY #90 capsule 01/25 Reason(s) for Admission: Onset of Labor Procedures: Ultrasound Intrapartum Procedure(s): Spontaneous Vaginal Delivery Complication(s): Laceration-Perineal Laceration-Degree: 1st - Diagnosis Test Laboratory: Temp Pulse Resp BP Pulse Ox 97.7 F 95 20 134/74 H 98 01/25/18 08:20 01/25/18 08:20 01/25/18 08:20 01/25/18 08:20 01/25/18 08:20 01/23/18 01/23/18 01/24/18 08:55 11:30 07:45 RBC 3.71 L 3.79 Hgb 11.5 L 11.7 L Hct 32.9 L 34.0 L Urine Opiates Screen NEGATIVE - Discharge information/Instructions Discharge Activity: Activity As Tolerated, Balance Activity w/Rest, No Lifting Over 10 Pounds, Pelvic Rest, No tub bath, Walk Frequently Discharge Diet: As Tolerated, Regular Disposition: HOME, SELF-CARE Follow up with: [facility] in: 4, Weeks
== END 2018-01-25 13:16 | disposition home or self-care (01) | DRG 807 ==
LOC: LC 08:49 → LR 10:18 → 2S 23:23
PROVIDERS: ADMIT Obstetrics & Gynecology; ATTEND Obstetrics & Gynecology
PROC: 10E0XZZ Delivery of Products of Conception, External Approach (ICD-10-PCS; principal; 2018-01-23)
PROC: 0HQ9XZZ Repair Perineum Skin, External Approach (ICD-10-PCS; 2018-01-23)
DX: O99.824 Streptococcus B carrier state complicating childbirth (principal); Z37.0 Single live birth; O70.0 First degree perineal laceration during delivery; Z3A.39 39 weeks gestation of pregnancy
CPT/HCPCS: 36415; 80307; 81001; 85025; 85027; 86592; 86850; 86900; 86901; 86920; 94760; J2210; J2540; J2590; J3010; J3490